=== PATIENT | female | born 1990 ===

== ENCOUNTER → 2018-01-19 | Outpatient (CLI) | payer BC ==
[2018-01-19 20:30] LABS: BASOPHILS ABSOLUTE AUTO 0.03 K/mm3 (0.00-0.23); BASOPHILS PERCENT AUTO 1 % (0-2); EOSINOPHILS ABSOLUTE AUTO 0.11 K/mm3 (0.00-0.68); EOSINOPHILS PERCENT AUTO 2 % (0-6); Hemoglobin 9.4 g/dL (11.5-16.0); IMMATURE GRAN ABSOLUTE AUTO 0.02 K/mm3 (0.00-0.10); IMMATURE GRAN PERCENT AUTO 0 % (0-1); LYMPHOCYTES ABSOLUTE AUTO 2.55 K/mm3 (0.84-5.20); LYMPHOCYTES PERCENT AUTO 40 % (21-46); MONOCYTES PERCENT AUTO 6 % (4-13); Mean Corpuscular HGB 28.4 pg (26.0-34.0); Mean Corpuscular HGB Conc 33.6 g/dL (31.5-36.5); Mean Corpuscular Volume 85 fL (80-100); Mean Platelet Volume 9.4 fL (9.1-12.4); NEUTROPHILS ABSOLUTE AUTO 3.27 K/mm3 (1.96-9.15); NEUTROPHILS PERCENT AUTO 51 % (41-73); NRBC ABSOLUTE 0.02 K/mm3 (0.00-0.02); NRBC Auto 0.3 /100 WBC (0.0-0.2); Platelet Count 262 K/mm3 (150-400); RDW Coefficient Variation 12.2 % (11.7-14.2); RDW Standard Deviation 37.4 fL (35.1-46.3); Red Blood Cell Count 3.31 M/mm3 (3.80-5.20); White Blood Cell Count 6.38 K/mm3 (4.00-11.30)
== END | disposition home or self-care (01) ==
LOC: LAB SHORT 20:24 → LAB 20:24
PROVIDERS: Nurse Practitioner
DX: N92.1 Excessive and frequent menstruation with irregular cycle (principal)
CPT/HCPCS: 85025

== ENCOUNTER 2018-06-07 11:51 | Day surgery (SDC) | payer BC, OTHER ==
[~2018-06-07] VITALS: Ht 167.6 cm; Wt 78.1 kg
[2018-06-07] MEDS ORDERED: Clomiphene Citr50 MG (12:30)
[2018-06-07] MEDS ORDERED: MEDR10 (12:30)
--- NOTE | 2018-06-07 13:00 | NUR ---
06/07/18 1300 Reyna Garvey PT RESTING IN PREOP WITH LIGHTS DIM AND PARENTS AT BEDSIDE AT THIS TIME.
--- NOTE | 2018-06-07 14:04 | NUR ---
06/07/18 1404 Janis Quinones aqualix deficit 1600. 1035 in machine, [address] aware of amount.
--- NOTE | 2018-06-07 14:41 | NUR ---
06/07/18 1441 Deborah Sams PT TRANSFERRED INTO THE RECLINER WITH STAND BY ASSIST FROM RN. M[place] PANTIES ARE ON AND SCANT AMOUNT OF BLOOD ON THE HARI PAD. VSS. PT IS NOW ACCOMPANIED BY HER MOM AND DAD. PT IS TOLERATING PO FLUIDS WELL. PT DENIES NAUSEA AND PAIN AT THIS TIME. WARM BLANKETS PROVIDED.
== END 2018-06-07 15:37 | disposition home or self-care (01) ==
LOC: ORSCSDS 11:51
PROVIDERS: Obstetrics & Gynecology
PROC: 0UDB8ZX Extraction of Endometrium, Via Natural or Artificial Opening Endoscopic, Diagnostic (ICD-10-PCS; principal; 2018-06-07 13:15)
PROC: 0UB98ZX Excision of Uterus, Via Natural or Artificial Opening Endoscopic, Diagnostic (ICD-10-PCS; principal; 2018-06-07 13:15)
DX: N84.0 Polyp of corpus uteri (principal)
CPT/HCPCS: 88305; J0690; J1100; J1885; J2250; J2405; J2765; J7120

== ENCOUNTER 2019-03-31 01:14 | Inpatient (IN) | payer BC ==
[~2019-03-31] VITALS: Ht 165.1 cm; Wt 91.3 kg
[~2019-03-31 01:14] MED LIST: Clomiphene Citr50 MG; MEDR10
[2019-03-31 01:37] LABS: Source, Urine Voided
[2019-03-31 01:40] LABS: Appearance, Urine Cloudy (Clear); Bilirubin, Urine Neg (Neg); Blood, Urine 5+ (Neg); Color, Urine Amber (P-Yellow); Glucose Qualitative, Urine Neg (Neg); Ketones, Urine 1+ (Neg); Leukocyte Esterase, Urine 1+ (Neg); Nitrite, Urine Neg (Neg); Protein, Urine 3+ (Neg); Specific Gravity, Urine 1.025 (1.003-1.022); Urobilinogen, Urine 1+ (Normal)
[2019-03-31 01:45] LABS: Bacteria Many /hpf; Squamous Epithelial Cells Mod /hpf (Few)
[2019-03-31] MEDS ORDERED: PRENATAL TABLE1 EAC2 PO (03:17)
[2019-03-31] MEDS ORDERED: TUMS500 MG PO (03:19)
[2019-03-31 03:20] LABS: BASOPHILS ABSOLUTE AUTO 0.01 K/mm3 (0.00-0.23); BASOPHILS PERCENT AUTO 0 % (0-2); EOSINOPHILS ABSOLUTE AUTO 0.07 K/mm3 (0.00-0.68); EOSINOPHILS PERCENT AUTO 1 % (0-6); Hematocrit 39.8 % (33.0-51.0); Hemoglobin 12.4 g/dL (11.5-16.0); IMMATURE GRAN ABSOLUTE AUTO 0.04 K/mm3 (0.00-0.10); IMMATURE GRAN PERCENT AUTO 0 % (0-1); LYMPHOCYTES PERCENT AUTO 16 % (21-46); MONOCYTES ABSOLUTE AUTO 0.71 K/mm3 (0.16-1.47); MONOCYTES PERCENT AUTO 8 % (4-13); Mean Corpuscular HGB 23.3 pg (26.0-34.0); Mean Corpuscular HGB Conc 31.2 g/dL (31.5-36.5); Mean Corpuscular Volume 75 fL (80-100); Mean Platelet Volume 9.6 fL (9.1-12.4); NEUTROPHILS PERCENT AUTO 76 % (41-73); Platelet Count 145 K/mm3 (150-400); RDW Coefficient Variation 17.1 % (11.7-14.2); RDW Standard Deviation 45.3 fL (35.1-46.3); Red Blood Cell Count 5.33 M/mm3 (3.80-5.20); White Blood Cell Count 9.53 K/mm3 (4.00-11.30)
[2019-03-31] MEDS ORDERED: IRON150C PO (03:21)
[2019-04-01 05:44] LABS: BASOPHILS ABSOLUTE AUTO 0.02 K/mm3 (0.00-0.23); BASOPHILS PERCENT AUTO 0 % (0-2); EOSINOPHILS ABSOLUTE AUTO 0.08 K/mm3 (0.00-0.68); EOSINOPHILS PERCENT AUTO 1 % (0-6); Hematocrit 33.6 % (33.0-51.0); Hemoglobin 10.1 g/dL (11.5-16.0); IMMATURE GRAN ABSOLUTE AUTO 0.08 K/mm3 (0.00-0.10); IMMATURE GRAN PERCENT AUTO 1 % (0-1); LYMPHOCYTES ABSOLUTE AUTO 1.86 K/mm3 (0.84-5.20); LYMPHOCYTES PERCENT AUTO 14 % (21-46); MONOCYTES ABSOLUTE AUTO 0.82 K/mm3 (0.16-1.47); MONOCYTES PERCENT AUTO 6 % (4-13); Mean Corpuscular HGB 22.4 pg (26.0-34.0); Mean Corpuscular HGB Conc 30.1 g/dL (31.5-36.5); Mean Corpuscular Volume 75 fL (80-100); Mean Platelet Volume 9.5 fL (9.1-12.4); NEUTROPHILS ABSOLUTE AUTO 10.29 K/mm3 (1.96-9.15); NEUTROPHILS PERCENT AUTO 78 % (41-73); Platelet Count 133 K/mm3 (150-400); RDW Coefficient Variation 17.2 % (11.7-14.2); RDW Standard Deviation 45.7 fL (35.1-46.3); White Blood Cell Count 13.15 K/mm3 (4.00-11.30)
--- NOTE | 2019-04-01 09:41 | NUR ---
CONSULT. HE IS LESS THAN 24 HOURS, TONGUE SUCKING AND HOLDING TONGUE IN POSTERIOR MOUTH. GETTING VERY FUSSY AT BREAST. WILL LATCH BRIEFLY, NARROW AND LEAVING A COMPRESSION STRIP. ATTEMPTED SELF EBM, MINIMAL PARTIAL DROP ELICITED. INSTRUCT/DEMO USE OF SNS SYRING WITH FORMULA, HE LATCHED BRIEFLY, SWALLOWED A COUPLE OF TIMES, THEN FELL ASLEEP. TOOK ABOUT 3CC OF FORMULA. MOM IS EXHAUSTED FROM A LONG LABOR. INSTRUCT IN CHANGES TO EXPECT DURING THE FIRST WEEK WITH BABY AND WITH FEEDINGS AND REFERRED TO BF BOOK FOR PHOTOS AND INFORMATION. WILL TRY AND REASSESS LATCH LATER TODAY.
[2019-04-01] MEDS ORDERED: IBUP800 (09:48)
== END 2019-04-01 16:25 | disposition home or self-care (01) | DRG 807 ==
LOC: OBS 01:14 → BC 01:14 → OBS 03:03 → BC 03:04
PROVIDERS: Advanced Practice Midwife; ADMIT Obstetrics & Gynecology
PROC: 10E0XZZ Delivery of Products of Conception, External Approach (ICD-10-PCS; principal; 2019-03-31)
PROC: 0HQ9XZZ Repair Perineum Skin, External Approach (ICD-10-PCS; 2019-03-31)
PROC: 3E0R3BZ Introduction of Anesthetic Agent into Spinal Canal, Percutaneous Approach (ICD-10-PCS; 2019-03-31)
DX: O13.4 Gestational [pregnancy-induced] hypertension without significant proteinuria, complicating childbirth (principal); Z37.0 Single live birth; O70.0 First degree perineal laceration during delivery; Z3A.40 40 weeks gestation of pregnancy
CPT/HCPCS: 36415; 51702; 59025; 81001; 85025; 86900; 86901; J1885; J2210; J2405; J2590; J3010; J7120

== ENCOUNTER → 2021-05-18 | Outpatient (CLI) | payer BC ==
[~2021-05-18] MED LIST changes: +IBUP800; +IRON150C PO; +PRENATAL TABLE1 EAC2 PO; +TUMS500 MG PO
[2021-05-23 15:07] LABS: HPV 16 Negative (Negative); HPV 18 Negative (Negative); HPV OTHER HR TYPES Positive (Negative)
== END ==
LOC: LAB SHORT 16:40 → LAB 16:40
PROVIDERS: Advanced Practice Midwife
DX: Z01.419 Encounter for gynecological examination (general) (routine) without abnormal findings (principal)
CPT/HCPCS: 87624; 87625; G0123

== ENCOUNTER → 2022-08-04 | Outpatient (CLI) | payer BC | LOC: LAB 13:37 → PLD 13:37 → LAB SHORT 13:37 | DX: R87.619 Unspecified abnormal cytological findings in specimens from cervix uteri (principal) | CPT/HCPCS: 88305 ==

== ENCOUNTER → 2023-07-30 | Outpatient (CLI) | payer BC ==
[2023-07-30 18:55] LABS: BASOPHILS ABSOLUTE AUTO 0.05 K/mm3 (0.00-0.23); BASOPHILS PERCENT AUTO 1 % (0-2); EOSINOPHILS ABSOLUTE AUTO 0.14 K/mm3 (0.00-0.68); EOSINOPHILS PERCENT AUTO 2 % (0-6); Hematocrit 43.5 % (33.0-51.0); IMMATURE GRAN ABSOLUTE AUTO 0.03 K/mm3 (0.00-0.10); IMMATURE GRAN PERCENT AUTO 0 % (0-1); LYMPHOCYTES ABSOLUTE AUTO 2.75 K/mm3 (0.84-5.20); LYMPHOCYTES PERCENT AUTO 32 % (21-46); MONOCYTES ABSOLUTE AUTO 0.38 K/mm3 (0.16-1.47); MONOCYTES PERCENT AUTO 4 % (4-13); Mean Corpuscular HGB 29.1 pg (26.0-34.0); Mean Corpuscular HGB Conc 34.5 g/dL (31.5-36.5); Mean Corpuscular Volume 84 fL (80-100); Mean Platelet Volume 9.3 fL (9.1-12.4); NEUTROPHILS PERCENT AUTO 61 % (41-73); Platelet Count 196 K/mm3 (150-400); RDW Coefficient Variation 11.8 % (11.7-14.2); RDW Standard Deviation 35.8 fL (35.1-46.3); Red Blood Cell Count 5.16 M/mm3 (3.80-5.20); White Blood Cell Count 8.65 K/mm3 (4.00-11.30)
[2023-07-30 20:09] LABS: Thyroid Stimulating Hormone 1.46 uIU/mL (0.360-4.800)
[2023-08-04 09:10] LABS: HPV SOURCE Cervical
== END ==
LOC: LAB 15:56 → LAB SHORT 15:56
PROVIDERS: Advanced Practice Midwife
DX: Z01.419 Encounter for gynecological examination (general) (routine) without abnormal findings (principal); R53.83 Other fatigue
CPT/HCPCS: 36415; 82306; 82728; 83540; 83550; 84443; 85025